=== PATIENT | male | born 1975 | race Caucasian/White ===

== ENCOUNTER 2022-07-21 09:39 | Inpatient (IN) | payer OTHER ==
[~2022-07-21] VITALS: Ht 180.3 cm; Wt 87.1 kg
[2022-07-21 09:43] VITALS: BP 160/116
--- NOTE | 2022-07-21 09:46 | NUR ---
BIBA BLS TO ER BED 8
[2022-07-21] MEDS ORDERED: MORPHINE SULFATE 4 MG/ML SYR IM ONE ×2 (09:50→11:40)
--- NOTE | 2022-07-21 10:09 | NUR ---
ASSUMED PATIENT CARE, NURSING ASSESSMENT COMPLETED.
[2022-07-21] MEDS ORDERED: ACET-8905 PO (11:15)
--- NOTE | 2022-07-21 11:28 | NUR ---
DISPO AND MEDICAL DECISION MAKING DC HOME WITH AFTERCARE INSTRUCTIONS AND E-RX. INSTRUCTIONS UNDERSTOOD BY PATIENT WELL.
--- NOTE | 2022-07-21 12:05 | NUR ---
PATIENT UNABLE TO GET UP FROM GURNEY D/T PAIN, REMEDICATED WITH MORPHINE IM, WILL REASSESS ACCORDINGLY.
--- NOTE | 2022-07-21 13:23 | NUR ---
DISPOSITION CHANGED TO DC TO INPATIENT ADMISSION FOR MANAGEMENT OF PAIN.
[2022-07-21 14:42] LABS: BASOPHILS % (AUTO) 0.5 % (0.0-2.0); EOSINOPHILS % (AUTO) 0.1 % (0.0-4.0); HEMATOCRIT 42.8 % (36-52); HEMOGLOBIN 14.3 g/dL (12.0-18.0); LYMPHOCYTES # (AUTO) 2.4 K/uL (2.0-11.5); LYMPHOCYTES % (AUTO) 25.8 % (20.5-51.1); MEAN CORPUSCULAR HEMOGLOBIN 29 pg (27-31); MEAN CORPUSCULAR HGB CONC 34 g/dL (33-37); MEAN CORPUSCULAR VOLUME 87.8 fL (80-94); MONOCYTES # (AUTO) 0.5 K/uL (0.8-1.0); MONOCYTES % (AUTO) 5.2 % (1.7-9.3); NEUTROPHILS # (AUTO) 6.3 K/uL (1.8-7.7); NEUTROPHILS % (AUTO) 68.4 % (42.2-75.2); PLATELET COUNT (AUTO) 291 K/uL (140-450); RED BLOOD CELL COUNT(AUTO) 4.87 MIL/uL (4.20-6.10); WHITE BLOOD COUNT (AUTO) 9.2 K/uL (4.8-10.8)
[2022-07-21 15:00] LABS: ANION GAP 10.2 (8-16); CARBON DIOXIDE 30.6 mmol/L (21-32); CREATININE 0.9 mg/dL (0.6-1.3); POTASSIUM 3.8 mmol/L (3.5-5.1)
--- NOTE | 2022-07-21 17:47 | NUR ---
TRANSFERRED TO MEDICAL FLOOR VIA [facility], ENDORSED CARE TO
[2022-07-21 20:00] VITALS: BP 156/81
[2022-07-21] MEDS: MORPHINE SULFATE 2 MG/ML SYR IVP PRN (21:46)
[2022-07-22] VITALS: BP 133/72
[2022-07-22] MEDS: MELATONIN 3 MG TAB PO PRN ×2 (00:08→23:49)
[2022-07-22] MEDS ORDERED: KETOROLAC 15 MG/ML VIAL IVP SCH (03:45)
[2022-07-22 04:00] VITALS: BP 153/91
--- NOTE | 2022-07-22 07:30 | NUR ---
RECEIVED REPORT FROM NIGHT NURSE PEARL FOR CONTINUITY OF CARE. IV SITE INTACT. NOT [place] DISTRESS NOTED. CALL LIGHT KEPT WITHIN REACH. WILL CONTINUE TO MONITOR.
--- NOTE | 2022-07-22 07:37 | NUR ---
ENDORSED TO DAY SHIFT NURSE FOR CONTINUITY OF CARE. PT IS STABLE AT THIS TIME.
[2022-07-22 08:00] VITALS: BP 145/76
--- NOTE | 2022-07-22 09:23 | NUR ---
PATIENT HAS BEEN SCREENED AND CATEGORIZED LOW NUTRITION RISK. PATIENT WILL BE SEEN WITHIN 7 DAYS OF ADMISSION. 07/28/22 REVIEWED BY JOSE TIM RD
[2022-07-22] MEDS: MORPHINE SULFATE 2 MG/ML SYR IVP PRN (09:30)
--- NOTE | 2022-07-22 09:30 | NUR ---
PRN MORPHINE IVP WAS GIVEN BY GAIL KUHN FOR PAIN MANAGEMENT. TOLERATING WELL.
--- NOTE | 2022-07-22 11:15 | NUR ---
DC PLANNING ASSESSMENT COMPLETE PLEASE REFER TO ASSESSMENT FOR DETAILS PT REPORTS DC PLAN IS TO RETURN HOME ONCE MEDICALLY STABLE. PT IS REQUESTING GURNEY TRANSPORT HOME. EXPLAINED TO PT HOW GURNEY TRANSPORT IS TYPICALLY ARRANGED PENDING INSURANCE AUTH OR OUT OF POCKET EXPENSE, IF NOT COVERED BY INSURANCE. PT VERBALIZED UNDERSTANDING. ENDORSED TO CM TO INQUIRE ON INSURANCE TRANSPORT BENEFITS Addendum: 07/23/22 at 0908 by Davin SCHMIDT Amended: Links added.
--- NOTE | 2022-07-22 11:15 | NUR ---
INFORMED BY CHARGE NURSE THAT PT STILL COMPLAINTS OF BACK PAIN 11/02. DR. KATZ NOTIFIED WITH NEW ORDER: NORCO 7.5 MG PO PRN FOR MODERATE PAIN. ORDER NOTED AND CARRIED OUT.
[2022-07-22] MEDS: HYDROcodone/APAP 7.5/325 MG 1 TAB PO PRN ×3 (11:31→23:48)
--- NOTE | 2022-07-22 11:31 | NUR ---
PRN NORCO PO GIVEN FOR PAIN MANAGEMENT. TOLERATING WELL.
--- NOTE | 2022-07-22 16:06 | NUR ---
NOTIFIED DR. KATZ D/T PT WITH EPISODE OF BRADYCARDIA. WITH NEW ORDERS: EKG, SERVICE MECHANIC CONSULT. NOTED AND CARRIED OUT.
--- NOTE | 2022-07-22 16:30 | NUR ---
NOTIFIED DRYWALL TAPER HELPER FOR PT NEW MRI OF LUMBAR SPINE WITHOUT CONTRAST.
--- NOTE | 2022-07-22 16:53 | NUR ---
DC PLANNING: PATIENT HAS AN ORDER FOR MRI OF LUMBAR SPINE FAXED TO [facility]. CM TO FOLLOW
--- NOTE | 2022-07-22 17:37 | NUR ---
PRN NORCO GIVEN BACK PAIN. TOLERATING WELL.
--- NOTE | 2022-07-22 19:30 | NUR ---
REPORT GIVEN TO NIGHT NURSE NORI FOR CONTINUITY OF CARE. ENDORSED TO NORI PT HAD ORDER FOR MRI TO LUMPAR SPINE WITHOUT CONTRAST, REQUEST FORM FAXED BY CREATIVE ENGAGEMENT DIRECTOR TO [facility]. CM TO FOLLOW. REMAINS STABLE.
[2022-07-22 20:00] VITALS: BP 141/74
[2022-07-23 04:00] VITALS: BP 143/85
[2022-07-23] MEDS: HYDROcodone/APAP 7.5/325 MG 1 TAB PO PRN ×3 (06:01→18:14)
--- NOTE | 2022-07-23 07:12 | NUR ---
ASSUMED CONTINUITY OF CARE. INITIAL ASSESSMENT DONE. KEEP COMFORTABLE ON BED. CALL LIGHT WITHIN REACH.
[2022-07-23 08:00] VITALS: BP 147/77
--- NOTE | 2022-07-23 13:45 | NUR ---
PHYSICAL THERAPIST CAME FOR PT. TREATMENT.
[2022-07-23 16:00] VITALS: BP 151/90
--- NOTE | 2022-07-23 17:35 | NUR ---
DR. SALAS CAME AND SPOKE TO PT. AT BEDSIDE.
[2022-07-23] MEDS ORDERED: MELATONIN 3 MG TAB PO PRN (18:23)
--- NOTE | 2022-07-23 19:12 | NUR ---
REPORT GIVEN TO BEVERLEY JOHN. IN STABLE CONDITION.
[2022-07-23 20:00] VITALS: BP 136/72
--- NOTE | 2022-07-23 23:28 | NUR ---
PATIENT STABLE VITALS SIGNS IN NORMAL LIMITS NOT COMPLAINING OF PAIN AT THIS TIME
[2022-07-24 00:03] VITALS: BP 140/72
[2022-07-24] MEDS: HYDROcodone/APAP 7.5/325 MG 1 TAB PO PRN ×3 (02:03→16:59)
--- NOTE | 2022-07-24 04:37 | NUR ---
PATIENT STABLE VITALS SIGNS IN NORMAL LIMITS NOT COMPLAINING OF PAIN AT THIS TIME
[2022-07-24 05:12] VITALS: BP 111/64
[2022-07-24 05:16] VITALS: BP 126/72
--- NOTE | 2022-07-24 07:06 | NUR ---
RECEIVED REPORT FROM SEMICONDUCTOR PACKAGES LEAK TESTER NURSE FOR CONTINUITY OF CARE. PT IN BED AT THIS TIME ON HIS PHONE. PT IS ALERT AND ORIENTED X4, ABLE TO VERBALIZE NEEDS, ABLE TO FOLLOW COMMANDS. RESPIRATIONS ARE EVEN AND UNLABORED ON ROOM AIR. NO SIGNS OF DISTRESS NOTED. ABD IS NONTENDER, NONDISTENDED WITH BOWEL SOUNDS PRESENT. PT IS ON REGULAR DIET, TOLERATING WELL. PT IS CONTINENT OF BOWEL AND BLADDER. NO IV ACCESS, PT REFUSES IV PLACEMENT. SKIN IS WARM, DRY, AND INTACT. CALL LIGHT WITHIN REACH. ALL SAFETY MEASURES IN PLACE.
[2022-07-24 08:00] VITALS: BP 127/83
--- NOTE | 2022-07-24 10:01 | NUR ---
PT COMPLAINING OF PAIN. STATES PAIN IS 6/10. MEDICATED.
[2022-07-24] MEDS ORDERED: METH-1866 PO (10:55)
[2022-07-24] MEDS ORDERED: ACET-8905 PO (10:55)
[2022-07-24 12:43] VITALS: BP 127/83
--- NOTE | 2022-07-24 14:20 | NUR ---
PT IN BED RESTING AT THIS TIME. RESPIRATIONS ARE EVEN AND UNLABORED.
--- NOTE | 2022-07-24 18:30 | NUR ---
PT DISCHARGED HOME WITH FAMILY. SIGNED ALL PAPERWORK. ALL BELONGINGS TAKEN UPON DISCHARGE.
== END 2022-07-24 18:30 | disposition home or self-care (01) | DRG 552 ==
LOC: MED 09:39 → MTU 14:24
PROVIDERS: ADMIT Family Medicine; ATTEND Family Medicine
DX: M54.9 Dorsalgia, unspecified (principal); R00.1 Bradycardia, unspecified; R20.2 Paresthesia of skin; K45.8 Other specified abdominal hernia without obstruction or gangrene; Z20.822 Contact with and (suspected) exposure to COVID-19
CPT/HCPCS: 36415; 80048; 85025; 93005; 96372; 97110; 97116; 97163-GP; 97530; 99285; J1885; J2270